=== PATIENT | male | born 1980 | race Two or more races ===

== ENCOUNTER 2018-05-14 12:51 | Emergency (ER) | payer MEDICAID, OTHER ==
[~2018-05-14] VITALS: Ht 182.9 cm; Wt 98.9 kg
[2018-05-14 13:53] VITALS: BP 113/66
[2018-05-14] MEDS ORDERED: BACITRACIN TOP OINT 1 UD PKG TOP ONE (14:30)
[2018-05-14] MEDS ORDERED: LIDOCAINE 1% (LOCAL ANESTH.) PF 5ml SDV ID ONE (14:30)
== END 2018-05-14 15:11 | disposition home or self-care (01) ==
LOC: ER 12:57
DX: S01.551A Open bite of lip, initial encounter (principal); S01.151A Open bite of right eyelid and periocular area, initial encounter; F17.210 Nicotine dependence, cigarettes, uncomplicated; Y93.89 Activity, other specified; W54.0XXA Bitten by dog, initial encounter; Y99.8 Other external cause status; Y92.89 Other specified places as the place of occurrence of the external cause
CPT/HCPCS: 12011